=== PATIENT | male | born 1975 | race Caucasian/White ===

== ENCOUNTER 2020-11-01 11:35 | Inpatient (IN) ==
--- NOTE | 2020-11-01 12:26 | DR.SOBA ---
HPI Time Seen Time Seen by Provider: 11/01/20 12:26 Primary Care Physician Primary Care Physician: Complaints Chief Complaint:: PT C/O SOB, FATIGUE, & COUGH X1 WEEK. PT STATES EVERYONE IN HIS CLOSE FAMILY IS POSITIVE FOR COVID. PT STATES HE WAS TESTED FOR COVID(NEGATIVE) & HAD CHEST XRAY DONE WHICH SHOWED A TOUCH OF PNEUMONIA. PT WAS PLACE ON HOME O2 @ 4L [place] & O2 SATS ARE IN THE LOW 80'S NOW. COVID-19 Coronavirus risk:travel/contact w/high risk person: Yes Has patient experienced Coronavirus symptoms: Yes Coronavirus symptoms experienced: Coughing and Shortness of Breath Source History Provided: Patient Mode of Arrival Mode of Arrival: Ambulatory Timing Onset of Chief Complaint: 10/25/20 PMH PMH Past Medical History: Yes Past Medical History: Diabetes Past Surgical History: Yes Surgical History: Cholecystectomy Family History History of Family Medical Conditions: Yes Family Medical History: Diabetes Mellitus and Hypertension Social History Do you use any recreational Drugs:: No Travel Risk Coronavirus risk:travel/contact w/high risk person: Yes Has patient experienced Coronavirus symptoms: Yes Coronavirus symptoms experienced: Coughing and Shortness of Breath Infectious screening Have you traveled outside the country in the last 6 months?: No Isolation: Airborn/Negative Pressure PE Vital Signs Vitals: Temperature 97.8 F Pulse Rate 63 Respiratory Rate 18 Blood Pressure [Left Arm] 124/86 Blood Pressure 110/67 O2 Sat by Pulse Oximetry 94 ROR Labs Reviewed Result Diagrams: 11/01/20 12:52 11/01/20 12:52 Laboratory: WBC 6.9 X10^3/uL (3.6-10.0) 11/01/20 12:52 RBC 4.28 X10^6/uL (4.7-6.0) L 11/01/20 12:52 Hgb 13.6 g/dL (13.5-18.0) 11/01/20 12:52 Hct 39.3 % (42.0-54.0) L 11/01/20 12:52 MCV 91.8 fL (80.0-100.0) 11/01/20 12:52 MCH 31.7 pg (27.0-34.0) 11/01/20 12:52 MCHC 34.5 g/dL (33.0-35.0) 11/01/20 12:52 RDW 13.6 % (11.6-16.5) 11/01/20 12:52 Plt Count 200 X10^3/uL (150.0-450.0) 11/01/20 12:52 MPV 8.4 fL (7.4-11.0) 11/01/20 12:52 Neut % (Auto) 74.1 % (42.0-75.0) 11/01/20 12:52 Lymph % (Auto) 20.0 % (21.0-51.0) L 11/01/20 12:52 [place] % (Auto) 5.7 % (0.0-13.0) 11/01/20 12:52 Eos % (Auto) 0.0 % (0.9-2.9) L 11/01/20 12:52 Baso % (Auto) 0.2 % (0.2-1.0) 11/01/20 12:52 Neut # (Auto) 5.1 x10^3/uL (2.2-4.8) H 11/01/20 12:52 Lymph # (Auto) 1.4 X10^3/uL (1.3-2.9) 11/01/20 12:52 [place] # (Auto) 0.4 x10^3/uL (0.3-0.8) 11/01/20 12:52 Eos # (Auto) 0.0 x10^3/uL (0.0-0.2) 11/01/20 12:52 Baso # (Auto) 0.0 X10^3/uL (0.0-0.1) 11/01/20 12:52 Absolute Nucleated RBC 0.1 /100WBC 11/01/20 12:52 D-Dimer 0.97 ug/ml (0.0-0.57) H* 11/01/20 12:52 Sample Site Rr 11/01/20 12:17 ABG pH 7.500 (7.35-7.45) H 11/01/20 12:17 ABG pCO2 33.0 mmHg (35.0-45.0) L 11/01/20 12:17 ABG pO2 47.0 mmHg (80.0-100.0) L* 11/01/20 12:17 ABG HCO3 25.7 mmol/L (22-26) 11/01/20 12:17 ABG O2 Saturation 87.0 % (90-100) L 11/01/20 12:17 ABG Base Excess 2.8 mmol/L (-2.0-2.0) H 11/01/20 12:17 Andrea Test Pos 11/01/20 12:17 A-a Gradient 61.0 mmHg 11/01/20 12:17 FiO2 21.0 11/01/20 12:17 Blood Gas Comments Nolvia well. sd 11/01/20 12:17 Sodium 138 mmol/L (136-145) 11/01/20 12:52 Corrected Sodium 139 mmol/L (136-145) 11/01/20 12:52 Potassium 4.2 mmol/L (3.5-5.1) 11/01/20 12:52 Chloride 100 mmol/L (98-107) 11/01/20 12:52 Carbon Dioxide 32.1 mmol/L (21-32) H 11/01/20 12:52 BUN 14 mg/dL (7-18) 11/01/20 12:52 Creatinine 1.08 mg/dL (0.70-1.30) 11/01/20 12:52 Est GFR (MDRD) Af Amer > 60 (>60) 11/01/20 12:52 Est GFR (MDRD) Non-Af > 60 (>60) 11/01/20 12:52 Glucose 157 mg/dL (65-99) H 11/01/20 12:52 Calcium 8.6 mg/dL (8.5-10.1) 11/01/20 12:52 Corrected Calcium 9.2 mg/dL (8.5-10.1) 11/01/20 12:52 Ferritin 2552 ng/mL (26-388) H 11/01/20 12:52 Total Bilirubin 0.70 mg/dL (0.2-1.0) 11/01/20 12:52 AST 52 Units/L (15-37) H 11/01/20 12:52 ALT 61 Units/L (12-78) 11/01/20 12:52 Alkaline Phosphatase 45 Units/L (46-116) L 11/01/20 12:52 C-Reactive Protein 18.20 mg/L (0-3.0) H 11/01/20 12:52 B-Natriuretic Peptide 28.9 pg/mL (0-79) 11/01/20 12:52 Total Protein 7.4 g/dL (6.4-8.2) 11/01/20 12:52 Albumin 3.2 g/dL (3.4-5.0) L 11/01/20 12:52 Globulin 4.2 g/dL (2.5-4.5) 11/01/20 12:52 Albumin/Globulin Ratio 0.8 Ratio (1.1-2.1) L 11/01/20 12:52 TSH 3rd Generation 36.695 uIU/mL (0.358-3.74) H 11/01/20 12:52 SARS-CoV-2 (PCR) Positive (NEGATIVE) A 11/01/20 12:57 Influenza Type A (PCR) Negative (NEGATIVE) 11/01/20 12:57 Influenza Type B (PCR) Negative (NEGATIVE) 11/01/20 12:57 RSV (PCR) Negative (NEGATIVE) 11/01/20 12:57 Opioid Opioid Risk Tool Age (Curt box if 16-45): Yes History of Preadolescent Sexual Abuse: No Total: 1 Total Score Risk Category: Low Risk Copyright: Cresencio VARGAS predicting aberrant behaviors Diagnosis Discharge Problem: Hypoxia, COVID-19 virus infection Pneumonia Qualifiers: Pneumonia type: due to unspecified organism Laterality: bilateral Lung location: lower lobe of lung Qualified Code(s): J18.9 - Pneumonia, unspecified organism Instructions Forms: Precautions for COVID19 [facility] Social Distancing
[2020-11-01 12:28] LABS: ABG BASE EXCESS 2.8 mmol/L (-2.0-2.0); ABG HCO3 25.7 mmol/L (22-26)
[2020-11-01 12:30] LABS: ABG ALLEN TEST POS
[2020-11-01] MEDS ORDERED: DUONEB 0.5 MG/3 MG (3 mL) NEB ONE ×2 (12:36→14:14)
[2020-11-01] MEDS ORDERED: SOLU-Medrol 125 MG VIAL IVP ONE (12:36)
[2020-11-01] MEDS ORDERED: NS 1000 ML 1,000 ML IV ONE (12:37)
[2020-11-01] MEDS ORDERED: NS 1000 ML 1,000 ML ONE (13:00)
[2020-11-01] MEDS ORDERED: SOLU-Medrol 125 MG VIAL ONE (13:00)
[2020-11-01 13:01] LABS: BASOPHILS % (AUTO) 0.2 % (0.2-1.0); HEMATOCRIT 39.3 % (42.0-54.0); HEMOGLOBIN 13.6 g/dL (13.5-18.0); LYMPHOCYTES # (AUTO) 1.4 X10^3/uL (1.3-2.9); MEAN CORPUSCULAR HEMOGLOBIN 31.7 pg (27.0-34.0); MEAN CORPUSCULAR HGB CONC 34.5 g/dL (33.0-35.0); MEAN CORPUSCULAR VOLUME 91.8 fL (80.0-100.0); MEAN PLATELET VOLUME 8.4 fL (7.4-11.0); MONOCYTES # (AUTO) 0.4 x10^3/uL (0.3-0.8); MONOCYTES % (AUTO) 5.7 % (0.0-13.0); NEUTROPHILS # (AUTO) 5.1 x10^3/uL (2.2-4.8); NEUTROPHILS % (AUTO) 74.1 % (42.0-75.0); PLATELET COUNT 200 X10^3/uL (150.0-450.0); RED BLOOD COUNT 4.28 X10^6/uL (4.7-6.0); RED CELL DISTRIBUTION WIDTH 13.6 % (11.6-16.5); WHITE BLOOD COUNT 6.9 X10^3/uL (3.6-10.0)
[2020-11-01 13:14] LABS: ALANINE AMINOTRANSFERASE 61 Units/L (12-78); ALBUMIN 3.2 g/dL (3.4-5.0); ALKALINE PHOSPHATASE 45 Units/L (46-116); ASPARTATE AMINO TRANSFERASE 52 Units/L (15-37); BLOOD UREA NITROGEN 14 mg/dL (7-18); CALCIUM 8.6 mg/dL (8.5-10.1); CARBON DIOXIDE 32.1 mmol/L (21-32); CHLORIDE 100 mmol/L (98-107); COR CA(FOR HYPOALB) 9.2 mg/dL (8.5-10.1); COR NA(FOR HYPERGLY) 139 mmol/L (136-145); CREATININE 1.08 mg/dL (0.70-1.30); SODIUM 138 mmol/L (136-145); TOTAL PROTEIN 7.4 g/dL (6.4-8.2); eGFR NON BLACK RACES > 60 (>60)
--- NOTE | 2020-11-01 14:17 | RAD ---
HISTORYSOB, FATIGUE X 1 WEEKSTUDYCHEST, 1 VIEWCOMPARISONNoneFINDINGSThe cardiomediastinal silhouette is unremarkable given patient rotation. Patchy bilateral airspace opacities. The bony thorax appears intact.IMPRESSIONPatchy bilateral airspace opacities concerning for pneumonia. Recommend follow-up to resolution.Electronically signed by: LUIS BERGMAN (Nov 01, 2020 14:16:20)
--- NOTE | 2020-11-01 16:35 | CT ---
EXAM: CTA CHEST WITH INTRAVENOUS CONTRASTHISTORY: Shortness of breath. Hypoxia.TECHNIQUE: Spiral axial CT images are obtained through the chest with the administration of intravenous contrast. Coronal, sagittal and 3D MIP images are reformatted.DOSIMETRY: Total DLP 726.6 mGycm; CTDI 113.6 mGyCOMPARISON: None available.FINDINGS:CARDIOVASCULAR: There is no evidence for pulmonary embolic disease. The heart size and mediastinal vascular structures are within normal limits. There is no significant aortic or coronary atherosclerosis seen. No thoracic aortic aneurysm or dissection is noted.MEDIASTINUM AND TRAN: There is shotty bilateral hilar and mediastinal lymphadenopathy in keeping with reactive lymphadenopathy. No mass lesion, emphysema, or abnormal fluid collection is seen.LUNGS: There is severe centrilobular lung parenchymal emphysema. There are extensive bilateral patchy groundglass parenchymal infiltrates in keeping with acute Covid pneumonia in the appropriate clinical setting; nonspecific finding; DDx includes airspace disease (with filling of alveoli, e.g. with fluid, pus, hemorrhage, or tumor cells) and interstitial lung disease (e.g. interstitial edema, interstitial pneumonia, and interstitial fibrosis). Clinical correlation is advised. There is no lung mass, lung nodule, or endobronchial obstructing lesion seen. No pleural effusion or pneumothorax is evident.CHEST WALL: There are no chest wall lesions seen. The visualized bony structures are within normal limits. No axillary lymphadenopathy is noted.UPPER ABDOMEN: Limited views through the upper abdomen demonstrate no gross acute abnormality. Status post cholecystectomy.IMPRESSION:1. Extensive bilateral patchy groundglass parenchymal infiltrates, especially in the midline lower lung rooney, in keeping with acute Covid pneumonia in the appropriate clinical setting. Clinical correlation is advised.2. Shotty mediastinal and bilateral hilar lymphadenopathy in keeping with reactive lymphadenopathy.3. Severe centrilobular lung parenchymal emphysema.4. No evidence for PE, aortic aneurysm or aortic dissection.5. No lung mass, endobronchial obstructing lesion, pleural effusion, or pneumothorax seen.Electronically signed by: Alfred Madrigal (Nov 01, 2020 16:33:06)
[2020-11-01] MEDS ORDERED: ZOSYN VIAL 3.375 GRAMS 3.375 G in NS 100 ML IV + SPIKE MINIBAG* 100 ML IV ONE (17:51)
[2020-11-01] MEDS ORDERED: ZOSYN VIAL 3.375 GRAMS IV ONE (17:54)
[2020-11-01] MEDS ORDERED: NS 100 ML IV 100 ML ONE ×3 (17:54→22:00)
[2020-11-01] MEDS ORDERED: REMDESIVIR 200 MG in NS 250 ML IV 250 ML IV ONE (20:00)
[2020-11-01] MEDS: PULMICORT NEB TX 0.5 MG NEB SCH (21:52)
[2020-11-01] MEDS: SNACK - Diabetic Appropriate PO SCH (22:26)
[2020-11-01] MEDS: HumuLIN R SUBCUT SCH (22:27)
[2020-11-01] MEDS: ASCORBIC ACID INJ MULTI-DOSE VIAL 1,500 MG in NS 100 ML IV 100 ML IV SCH (22:27)
[2020-11-01] MEDS ORDERED: REMDESIVIR IV ONE (22:29)
[2020-11-01] MEDS ORDERED: NS 250 ML IV 250 ML IV ONE (22:29)
[2020-11-01] MEDS: SOLU-Medrol 40 MG VIAL IVP SCH (22:40)
[2020-11-01] MEDS: LOVENOX INJ 30 MG SYR SC SCH (22:40)
[2020-11-01] MEDS: ZINC SULFATE PO SCH (22:40)
[2020-11-01] MEDS: PEPCID TAB 40 MG PO SCH (22:40)
[2020-11-02] MEDS: ASCORBIC ACID INJ MULTI-DOSE VIAL 1,500 MG in NS 100 ML IV 100 ML IV SCH ×4 (02:20→21:51)
[2020-11-02 04:19] VITALS: BMI 28.8
[2020-11-02] MEDS: SOLU-Medrol 40 MG VIAL IVP SCH ×3 (05:32→21:00)
[2020-11-02] MEDS: HumuLIN R SUBCUT SCH ×4 (05:32→22:37)
[2020-11-02] MEDS: ZOSYN VIAL 3.375 GRAMS 3.375 G in NS 100 ML IV + SPIKE MINIBAG* 100 ML IV SCH ×3 (05:32→22:21)
[2020-11-02 06:14] LABS: BASOPHILS % (AUTO) 0.1 % (0.2-1.0); HEMATOCRIT 38.3 % (42.0-54.0); HEMOGLOBIN 13.4 g/dL (13.5-18.0); LYMPHOCYTES # (AUTO) 1.3 X10^3/uL (1.3-2.9); MEAN CORPUSCULAR HEMOGLOBIN 32.2 pg (27.0-34.0); MEAN CORPUSCULAR HGB CONC 34.9 g/dL (33.0-35.0); MEAN CORPUSCULAR VOLUME 92.4 fL (80.0-100.0); MEAN PLATELET VOLUME 8.9 fL (7.4-11.0); MONOCYTES # (AUTO) 0.2 x10^3/uL (0.3-0.8); MONOCYTES % (AUTO) 3.6 % (0.0-13.0); NEUTROPHILS % (AUTO) 76.3 % (42.0-75.0); PLATELET COUNT 229 X10^3/uL (150.0-450.0); RED BLOOD COUNT 4.15 X10^6/uL (4.7-6.0); RED CELL DISTRIBUTION WIDTH 13.2 % (11.6-16.5); WHITE BLOOD COUNT 6.6 X10^3/uL (3.6-10.0)
[2020-11-02 06:47] LABS: ALANINE AMINOTRANSFERASE 54 Units/L (12-78); ALKALINE PHOSPHATASE 49 Units/L (46-116); ASPARTATE AMINO TRANSFERASE 36 Units/L (15-37); BLOOD UREA NITROGEN 13 mg/dL (7-18); CALCIUM 8.4 mg/dL (8.5-10.1); CHLORIDE 101 mmol/L (98-107); COR CA(FOR HYPOALB) 9.2 mg/dL (8.5-10.1); COR NA(FOR HYPERGLY) 141 mmol/L (136-145); SODIUM 138 mmol/L (136-145); TOTAL PROTEIN 7.1 g/dL (6.4-8.2); eGFR NON BLACK RACES > 60 (>60)
--- NOTE | 2020-11-02 08:38 | RAD ---
HISTORYCOVID-19 pneumoniaSTUDYPortable AP [id number]/10/2021FINDINGSContinued normal heart size and contour. Similar appearance of patch y and linear bilateral pulmonary infiltrates. No pleural fluid or complicating extrapulmonary air col lection identified.IMPRESSIONThere is little if any significant change in appearance of the chest. Ap pearance of the infiltrates is consistent with an atypical pneumonia pattern.Electronically signed by : BLANCA KEATING (Nov 02, 2020 08:36:08)
[2020-11-02] MEDS ORDERED: VITAMIN D (1.25MG) PO SCH (09:00)
[2020-11-02] MEDS ORDERED: VITAMIN A PO SCH (09:00)
[2020-11-02] MEDS: BROVANA IN SCH ×2 (09:45→21:42)
[2020-11-02] MEDS: PULMICORT NEB TX 0.5 MG NEB SCH ×2 (09:45→21:42)
[2020-11-02] MEDS ORDERED: NS 100 ML IV 100 ML ONE (09:54)
[2020-11-02] MEDS: LOVENOX INJ 30 MG SYR SC SCH ×2 (09:59→20:49)
[2020-11-02] MEDS: PEPCID TAB 40 MG PO SCH ×2 (09:59→20:48)
[2020-11-02] MEDS: TRICOR TAB 160 MG PO SCH (10:00)
[2020-11-02] MEDS: ZINC SULFATE PO SCH ×2 (10:00→20:48)
[2020-11-02 11:06] LABS: ABG BASE EXCESS -1.6 mmol/L (-2.0-2.0); ABG HCO3 21.3 mmol/L (22-26)
[2020-11-02] MEDS: ZITHROMAX INJ 500 MG VIAL 250 MG in NS 250 ML IV 250 ML IV SCH (11:16)
--- NOTE | 2020-11-02 15:10 | DR.H&P ---
H&P - History & Physical for Day of: H&P Date: 11/01/20 - Chief Complaint Chief Complaint: CHEST PAIN, SOB - History of Present Illness History of Present Illness: PT C/O SOB, FATIGUE, & COUGH X1 WEEK. PT STATES EVERYONE IN HIS CLOSE FAMILY IS POSITIVE FOR COVID. PT STATES HE WAS TESTED FOR COVID(NEGATIVE) & HAD CHEST XRAY DONE WHICH SHOWED A TOUCH OF PNEUMONIA. PT WAS PLACE ON HOME O2 @ 4L [place] & O2 SATS ARE IN THE LOW 80'S NOW. - Past Medical History Past Medical History: Diabetes - Past Surgical History Surgical History: Cholecystectomy - Family History Family Medical History: Diabetes Mellitus, Hypertension - Social History Does patient currently use any type of tobacco product: No Have you used tobacco products in the last 12 months: No Type of Tobacco Use: None Does any household member use tobacco: No Alcohol Use: None Drug Use: None - Medications Home Medications: ketorolac [From Toradol] Allergy (Verified 12/06/18 12:09) morphine Allergy (Verified 12/06/18 12:09) CONTINUE taking the following medications levothyroxine [Euthyrox] 125 mcg PO DAILY 11/01/20 [History] metformin 500 mg PO DAILY 11/01/20 [History] - Review of Systems Constitutional: Chills, Weakness, Malaise Eyes: No Symptoms Reported ENT: No Symptoms Reported, Nose Congestion Respiratory: No Symptoms Reported Cardiovascular: No Symptoms Reported Gastrointestinal: No Symptoms Reported, Nausea, Vomiting Genitourinary: No Symptoms Reported Musculoskeletal: No Symptoms Reported Skin: No Symptoms Reported Neurological: No Symptoms Reported - Physical Exam Vital Signs: Temperature 97.8 F Pulse Rate [Left Radial] 66 Pulse Rate 68 Respiratory Rate 18 Blood Pressure [Left Arm] 96/59 Blood Pressure 110/67 O2 Sat by Pulse Oximetry 92 Oriented: Normal Eyes: Normal Ear: Normal Nose: Normal Throat: Normal Respiratory: RML Diminished, RLL Diminished, LML Diminished, LLL Diminished Cardiovascular: Normal : Normal Auscultation: Bowel Sounds: Normal Palpation: Normal Tenderness: Normal Skin: Decreased [place] Musculoskeletal: Normal Psychiatric: Normal Affect: Angry Speech Pattern: Clear, Appropriate - Assessment/Plan (1) Pneumonia Qualifiers: Pneumonia type: due to unspecified organism Laterality: bilateral Lung location: lower lobe of lung Qualified Code(s): J18.9 - Pneumonia, unspecified organism Status: Acute Plan: COVID 19 ISOLATION, IV ATBX. REMDESIVIR, IV HYDRATION. BS CONTROL, VERIFY HOME MEDICATIONS. SUPPLMENTAL O2, RESP THERAPY (2) Diabetes Status: Acute (3) Hypoxia Status: Acute (4) COVID-19 virus infection Status: Acute - Allergies Allergies/Adverse Reactions: Allergies Allergy/AdvReac Type Severity Reaction Status Date / Time ketorolac [From Toradol] Allergy Verified 12/06/18 12:09 morphine Allergy Verified 12/06/18 12:09
[2020-11-02] MEDS: REMDESIVIR 100 MG in NS 250 ML IV 250 ML IV SCH (20:45)
[2020-11-02] MEDS: SNACK - Diabetic Appropriate PO SCH (22:37)
[2020-11-03] MEDS: ASCORBIC ACID INJ MULTI-DOSE VIAL 1,500 MG in NS 100 ML IV 100 ML IV SCH ×4 (02:02→21:37)
[2020-11-03] MEDS: ZOSYN VIAL 3.375 GRAMS 3.375 G in NS 100 ML IV + SPIKE MINIBAG* 100 ML IV SCH ×3 (05:05→21:37)
[2020-11-03] MEDS: SOLU-Medrol 40 MG VIAL IVP SCH ×3 (05:05→21:00)
[2020-11-03] MEDS: HumuLIN R SUBCUT SCH ×4 (05:33→21:46)
[2020-11-03] MEDS ORDERED: GLUCOPHAGE ONE (06:01)
[2020-11-03] MEDS: GLUCOPHAGE PO SCH (06:03)
[2020-11-03 06:25] LABS: ABG ALLEN TEST POSS; ABG BASE EXCESS 0.9 mmol/L (-2.0-2.0); ABG HCO3 23.4 mmol/L (22-26)
[2020-11-03 06:43] LABS: BASOPHILS % (AUTO) 0.1 % (0.2-1.0); HEMATOCRIT 37.2 % (42.0-54.0); HEMOGLOBIN 12.9 g/dL (13.5-18.0); LYMPHOCYTES # (AUTO) 1.3 X10^3/uL (1.3-2.9); LYMPHOCYTES % (AUTO) 15.2 % (21.0-51.0); MEAN CORPUSCULAR HEMOGLOBIN 32.3 pg (27.0-34.0); MEAN CORPUSCULAR HGB CONC 34.6 g/dL (33.0-35.0); MEAN CORPUSCULAR VOLUME 93.4 fL (80.0-100.0); MEAN PLATELET VOLUME 9.1 fL (7.4-11.0); MONOCYTES # (AUTO) 0.5 x10^3/uL (0.3-0.8); MONOCYTES % (AUTO) 6.1 % (0.0-13.0); NEUTROPHILS # (AUTO) 6.6 x10^3/uL (2.2-4.8); NEUTROPHILS % (AUTO) 78.6 % (42.0-75.0); PLATELET COUNT 274 X10^3/uL (150.0-450.0); RED BLOOD COUNT 3.99 X10^6/uL (4.7-6.0); RED CELL DISTRIBUTION WIDTH 13.5 % (11.6-16.5); WHITE BLOOD COUNT 8.4 X10^3/uL (3.6-10.0)
[2020-11-03 06:51] LABS: ALANINE AMINOTRANSFERASE 47 Units/L (12-78); ALBUMIN 2.8 g/dL (3.4-5.0); ALKALINE PHOSPHATASE 56 Units/L (46-116); ASPARTATE AMINO TRANSFERASE 26 Units/L (15-37); BLOOD UREA NITROGEN 15 mg/dL (7-18); CALCIUM 8.4 mg/dL (8.5-10.1); CARBON DIOXIDE 24.2 mmol/L (21-32); CHLORIDE 103 mmol/L (98-107); COR CA(FOR HYPOALB) 9.4 mg/dL (8.5-10.1); COR NA(FOR HYPERGLY) 146 mmol/L (136-145); CREATININE 1.15 mg/dL (0.70-1.30); SODIUM 141 mmol/L (136-145); TOTAL PROTEIN 6.6 g/dL (6.4-8.2); eGFR NON BLACK RACES > 60 (>60)
[2020-11-03] MEDS ORDERED: POTASSIUM CHL 40 MEQ/NS 0.45% 500 ML IV PRN (07:02)
[2020-11-03] MEDS ORDERED: POTASSIUM CHLORIDE LIQ 20 MEQ UDC PO PRN (07:02)
[2020-11-03] MEDS ORDERED: K-DUR TAB 20 MEQ PO PRN (07:02)
[2020-11-03] MEDS ORDERED: MICRO K EXTEN CAP 10 MEQ PO PRN (07:02)
[2020-11-03] MEDS ORDERED: KLOR-CON PO PRN (07:02)
[2020-11-03] MEDS ORDERED: K-RIDER 10 MEQ/NS 100 ML 10 MEQ/100 ML BAG IV PRN (07:02)
[2020-11-03] MEDS ORDERED: POTASSIUM CHL 60 MEQ/NS 0.45% 500 ML IV PRN (07:02)
[2020-11-03] MEDS ORDERED: MAGNESIUM SULFATE 1 GRAM/100 mL PREMIX 1 GM/100 ML BAG IV PRN (07:02)
--- NOTE | 2020-11-03 08:13 | RAD ---
HISTORYCOVID-19STUDYPortable AP [id number]/11/2021FINDINGSHeart size is similar. Persistent but improving linear-patchy pulmonary infiltrates. No new areas of consolidation or pleural fluid involvement identified.IMPRESSIONSlight interval improvement in the appearance of bilateral pneumonia.Electronically signed by: BLANCA KEATING (Nov 03, 2020 08:12:10)
[2020-11-03] MEDS ORDERED: ZITHROMAX INJ 500 MG VIAL IV ONE (08:25)
[2020-11-03] MEDS: PEPCID TAB 40 MG PO SCH ×2 (08:51→20:33)
[2020-11-03] MEDS: TRICOR TAB 160 MG PO SCH (08:51)
[2020-11-03] MEDS: VITAMIN A PO SCH (08:51)
[2020-11-03] MEDS: VITAMIN D3 125 mcg (5,000 UNITS) PO SCH (08:51)
[2020-11-03] MEDS: LOVENOX INJ 30 MG SYR SC SCH ×2 (08:51→20:34)
[2020-11-03] MEDS: ZINC SULFATE PO SCH ×2 (08:52→20:33)
[2020-11-03] MEDS: ZITHROMAX INJ 500 MG VIAL 250 MG in NS 250 ML IV 250 ML IV SCH (08:52)
[2020-11-03] MEDS: BROVANA IN SCH ×2 (09:45→20:14)
[2020-11-03] MEDS: PULMICORT NEB TX 0.5 MG NEB SCH ×2 (09:45→20:14)
[2020-11-03] MEDS: GLUCOPHAGE XR 24-HR PO SCH ×2 (11:48→21:46)
[2020-11-03] MEDS ORDERED: NS 100 ML IV 100 ML ONE (19:47)
[2020-11-03] MEDS: REMDESIVIR 100 MG in NS 250 ML IV 250 ML IV SCH (20:32)
[2020-11-03] MEDS: SNACK - Diabetic Appropriate PO SCH (21:45)
[2020-11-04] MEDS: ASCORBIC ACID INJ MULTI-DOSE VIAL 1,500 MG in NS 100 ML IV 100 ML IV SCH ×4 (02:03→20:40)
[2020-11-04 05:07] LABS: ABG ALLEN TEST POS; ABG BASE EXCESS -0.4 mmol/L (-2.0-2.0); ABG HCO3 21.8 mmol/L (22-26)
[2020-11-04] MEDS: ZOSYN VIAL 3.375 GRAMS 3.375 G in NS 100 ML IV + SPIKE MINIBAG* 100 ML IV SCH ×3 (05:10→21:50)
[2020-11-04] MEDS: HumuLIN R SUBCUT SCH ×4 (05:10→20:42)
[2020-11-04] MEDS: SOLU-Medrol 40 MG VIAL IVP SCH ×3 (05:10→21:50)
[2020-11-04 06:18] LABS: ALANINE AMINOTRANSFERASE 47 Units/L (12-78); ALBUMIN 2.6 g/dL (3.4-5.0); ALKALINE PHOSPHATASE 40 Units/L (46-116); ASPARTATE AMINO TRANSFERASE 41 Units/L (15-37); BLOOD UREA NITROGEN 16 mg/dL (7-18); CARBON DIOXIDE 20.2 mmol/L (21-32); CHLORIDE 102 mmol/L (98-107); COR CA(FOR HYPOALB) 9.1 mg/dL (8.5-10.1); COR NA(FOR HYPERGLY) 143 mmol/L (136-145); CREATININE 1.12 mg/dL (0.70-1.30); SODIUM 138 mmol/L (136-145); TOTAL PROTEIN 6.2 g/dL (6.4-8.2); eGFR NON BLACK RACES > 60 (>60)
[2020-11-04 06:41] LABS: BASOPHILS % (AUTO) 0.3 % (0.2-1.0); HEMATOCRIT 36.8 % (42.0-54.0); HEMOGLOBIN 12.7 g/dL (13.5-18.0); LYMPHOCYTES # (AUTO) 0.8 X10^3/uL (1.3-2.9); LYMPHOCYTES % (AUTO) 11.6 % (21.0-51.0); MEAN CORPUSCULAR HEMOGLOBIN 32.1 pg (27.0-34.0); MEAN CORPUSCULAR HGB CONC 34.4 g/dL (33.0-35.0); MEAN CORPUSCULAR VOLUME 93.4 fL (80.0-100.0); MEAN PLATELET VOLUME 8.3 fL (7.4-11.0); MONOCYTES # (AUTO) 0.4 x10^3/uL (0.3-0.8); MONOCYTES % (AUTO) 6.1 % (0.0-13.0); PLATELET COUNT 298 X10^3/uL (150.0-450.0); RED BLOOD COUNT 3.95 X10^6/uL (4.7-6.0); RED CELL DISTRIBUTION WIDTH 13.4 % (11.6-16.5); WHITE BLOOD COUNT 7.3 X10^3/uL (3.6-10.0)
--- NOTE | 2020-11-04 07:52 | RAD ---
HISTORYCOVID-19STUDYAP [id number]/12/2021FINDINGSThere is no significant change in appearance of the chest. Heart size is stable. Persistent bilateral pulmonary infiltrates without significant improvement or progression. No developing pleural fluid or pneumothorax seen.IMPRESSIONNo change.Electronically signed by: BLANCA KEATING (Nov 04, 2020 07:49:22)
[2020-11-04] MEDS: LOVENOX INJ 30 MG SYR SC SCH ×2 (08:02→20:43)
[2020-11-04] MEDS: GLUCOPHAGE XR 24-HR PO SCH ×2 (08:02→20:41)
[2020-11-04] MEDS: VITAMIN A PO SCH (08:03)
[2020-11-04] MEDS: TRICOR TAB 160 MG PO SCH (08:03)
[2020-11-04] MEDS: PEPCID TAB 40 MG PO SCH ×2 (08:03→20:41)
[2020-11-04] MEDS: ZINC SULFATE PO SCH ×2 (08:04→20:42)
[2020-11-04] MEDS: ZITHROMAX INJ 500 MG VIAL 250 MG in NS 250 ML IV 250 ML IV SCH (08:04)
[2020-11-04] MEDS: VITAMIN D3 125 mcg (5,000 UNITS) PO SCH (08:04)
[2020-11-04] MEDS: PULMICORT NEB TX 0.5 MG NEB SCH ×2 (09:25→21:30)
[2020-11-04] MEDS: BROVANA IN SCH ×2 (09:25→21:31)
[2020-11-04 10:18] LABS: ABG HCO3 22.9 mmol/L (22-26)
[2020-11-04 10:19] LABS: ABG ALLEN TEST POS
[2020-11-04] MEDS: SNACK - Diabetic Appropriate PO SCH (20:40)
[2020-11-04] MEDS: REMDESIVIR 100 MG in NS 250 ML IV 250 ML IV SCH (20:40)
[2020-11-05] MEDS: ASCORBIC ACID INJ MULTI-DOSE VIAL 1,500 MG in NS 100 ML IV 100 ML IV SCH ×2 (03:22→09:37)
[2020-11-05] MEDS: SOLU-Medrol 40 MG VIAL IVP SCH (05:04)
[2020-11-05] MEDS: ZOSYN VIAL 3.375 GRAMS 3.375 G in NS 100 ML IV + SPIKE MINIBAG* 100 ML IV SCH (05:04)
[2020-11-05] MEDS: HumuLIN R SUBCUT SCH ×2 (05:36→11:15)
[2020-11-05 05:49] LABS: ABG BASE EXCESS 2.3 mmol/L (-2.0-2.0)
[2020-11-05 05:50] LABS: ABG ALLEN TEST POS
[2020-11-05 06:27] LABS: BASOPHILS % (AUTO) 0.2 % (0.2-1.0); HEMATOCRIT 37.2 % (42.0-54.0); HEMOGLOBIN 12.7 g/dL (13.5-18.0); LYMPHOCYTES # (AUTO) 0.9 X10^3/uL (1.3-2.9); LYMPHOCYTES % (AUTO) 14.9 % (21.0-51.0); MEAN CORPUSCULAR HEMOGLOBIN 31.4 pg (27.0-34.0); MEAN CORPUSCULAR HGB CONC 34.2 g/dL (33.0-35.0); MEAN PLATELET VOLUME 8.4 fL (7.4-11.0); MONOCYTES # (AUTO) 0.4 x10^3/uL (0.3-0.8); MONOCYTES % (AUTO) 6.1 % (0.0-13.0); NEUTROPHILS % (AUTO) 78.8 % (42.0-75.0); PLATELET COUNT 336 X10^3/uL (150.0-450.0); RED BLOOD COUNT 4.04 X10^6/uL (4.7-6.0); RED CELL DISTRIBUTION WIDTH 13.6 % (11.6-16.5); WHITE BLOOD COUNT 6.3 X10^3/uL (3.6-10.0)
[2020-11-05 06:43] LABS: ALANINE AMINOTRANSFERASE 45 Units/L (12-78); ALBUMIN 2.7 g/dL (3.4-5.0); ALKALINE PHOSPHATASE 45 Units/L (46-116); ASPARTATE AMINO TRANSFERASE 23 Units/L (15-37); BLOOD UREA NITROGEN 16 mg/dL (7-18); CARBON DIOXIDE 24.5 mmol/L (21-32); CHLORIDE 102 mmol/L (98-107); COR NA(FOR HYPERGLY) 142 mmol/L (136-145); CREATININE 1.18 mg/dL (0.70-1.30); SODIUM 137 mmol/L (136-145); eGFR NON BLACK RACES > 60 (>60)
--- NOTE | 2020-11-05 06:49 | RAD ---
HISTORYSOB, COVID+STUDYCHEST, 1 [id number]/13/2021.TECHNIQUEAP view of the chestFINDINGSCardiac and mediastinal contours are within normal limits. No significant change in mild bilateral airspace and interstitial opacities. No definite pleural effusion or pneumothorax.IMPRESSIONNo significant change.Electronically signed by: Mike Sanchez (Nov 05, 2020 06:48:29)
[2020-11-05] MEDS: BROVANA IN SCH (08:15)
[2020-11-05] MEDS: PULMICORT NEB TX 0.5 MG NEB SCH (08:15)
[2020-11-05] MEDS: VITAMIN D3 125 mcg (5,000 UNITS) PO SCH (09:38)
[2020-11-05] MEDS: PEPCID TAB 40 MG PO SCH (09:38)
[2020-11-05] MEDS: ZINC SULFATE PO SCH (09:38)
[2020-11-05] MEDS: LOVENOX INJ 30 MG SYR SC SCH (09:39)
[2020-11-05] MEDS: TRICOR TAB 160 MG PO SCH (09:39)
[2020-11-05] MEDS: VITAMIN A PO SCH (09:39)
[2020-11-05] MEDS: GLUCOPHAGE XR 24-HR PO SCH (10:05)
[2020-11-05] MEDS: ZITHROMAX INJ 500 MG VIAL 250 MG in NS 250 ML IV 250 ML IV SCH (10:05)
[2020-11-05 11:02] LABS: ABG ALLEN TEST POS; ABG BASE EXCESS 1.4 mmol/L (-2.0-2.0); ABG HCO3 22.7 mmol/L (22-26)
[2020-11-05 13:35] VITALS: BP 129/73
== END 2020-11-05 12:40 | disposition home or self-care (01) | DRG 177 ==
LOC: MED/SURG 11:39 → ER 11:39 → MED/SURG 21:00
PROVIDERS: ADMIT Internal Medicine; ATTEND Internal Medicine
DX: U07.1 COVID-19; R09.02 Hypoxemia; R07.89 Other chest pain; J12.82 Pneumonia due to coronavirus disease 2019; R79.82 Elevated C-reactive protein (CRP); E11.65 Type 2 diabetes mellitus with hyperglycemia; R06.02 Shortness of breath; R79.89 Other specified abnormal findings of blood chemistry